=== PATIENT | female | born 1990 | race African-American/Black ===

== ENCOUNTER 2022-11-24 08:41 | Emergency (ER) | payer OTHER, BC, SELFPAY ==
[2022-11-24 08:52] VITALS: BP 120/59; PULSE 67; RESP 16; TEMP 36.4; O2SAT 99
--- NOTE | 2022-11-24 09:48 | ED.GENADULT ---
HPI - General Adult General Time Seen by Provider: 09:48 Date Seen: 11/24/22 Chief complaint: Extremity Pain/Injury, Lower Stated complaint: left leg pain Time Seen by Provider: 11/24/22 09:48 Source: patient and RN notes reviewed Mode of arrival: ambulatory Limitations: no limitations History of Present Illness HPI narrative: Patient is a 32-year-old female coming in with left leg pain. She has pain in the left buttock area and radiates down the leg to about the left ankle. She states the pain travels down. She denies any fevers chills, no trauma, no bowel or bladder changes or incontinence, no history of back problems. She is a nonsmoker. 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 She states she is sleeping okay. Does not believe she is but is not completely sure. As far as underlying health issues, she states she has asthma which is stable at this time. This has been present for about 4 days, she has never had anything like this before. Related Data Home Medications Medication Instructions Recorded Confirmed albuterol 90 mcg/actuation aerosol mcg inhalation PRN 11/24/22 inhaler Previous Rx's Medication Instructions Recorded cyclobenzaprine 10 mg tablet 10 mg PO HS PRN muscle spasm #7 11/24/22 tabs prednisone 20 mg tablet 20 mg PO BID #10 tabs 11/24/22 Allergies Allergy/AdvReac Type Severity Reaction Status Date / Time No Known Drug Allergies Allergy Verified 11/24/22 08:54 Review of Systems Status of ROS: Reports: 6 or more systems reviewed and unremarkable except as noted in History and below [facility] Social History Smoking Status: Never smoker Do you use any of these nicotine containing products: None How often do you have a drink containing alcohol: never How often do you have six or more drinks on one occasion: Never AUDIT-C Alcohol total score: 0 Non-prescribed substance use: denies use service: No Exam Const: Vital Signs, click to edit/add: Vital Signs - 24 hr 11/24/22 08:52 Temperature 97.6 F Pulse Rate [Pulse Oximeter] 67 Respiratory Rate 16 Blood Pressure [Ri ght Upper Arm] 120/59 L Pulse Oximetry 99 Oxygen Delivery Me thod Room Air 32-year-old female is alert interactive no apparent distress. She has no lower extremity edema, normal sensation throughout both lower extremities. No calf tenderness. Negative straight leg raising bilaterally but does have pain in the left sciatic notch on palpation, states that is where it hurts in comes from. Strength is 5/5 and symmetric throughout both lower extremities. Is able to ambulate without difficulty. Documenting provider has reviewed patient's vital signs: yes Course Course Hospital Course: Reviewed with patient that I do think she probably is exhibiting a left sciatica. Will obtain lumbar spine x-rays on her after we confirm negative test. She is in agreement with plan. Reevaluation(s) Time of Reevaluation #1: 10:59 Reevaluation #1: Have reviewed with patient negative lumbar x-rays. We discussed discogenic disease, musculoskeletal issues that can contribute to radiculopathy. Would recommend course of medications with prednisone, p.r.n. Tylenol and ibuprofen, p.r.n. Flexeril. Did discuss restrictions with Flexeril. Will give her 1 week weight restrictions at work, physical therapy referral and recommendations for follow-up. Vital Signs Vital signs: Initial Vital Signs Temperature 97.6 F 11/24/22 08:52 Temperature Source Temporal Artery Scan 11/24/22 08:52 Pulse Rate 67 11/24/22 08:52 Respiratory Rate 16 11/24/22 08:52 Blood Pressure 120/59 L 11/24/22 08:52 Blood Pressure Mean 79 11/24/22 08:52 Blood Pressure Position Sitting 11/24/22 08:52 Pulse Oximetry 99 11/24/22 08:52 Oxygen Delivery Method Room Air 11/24/22 08:52 Vital Signs Temperature 97.6 F 11/24/22 08:52 Pulse Rate 67 11/24/22 08:52 Respiratory Rate 16 11/24/22 08:52 Blood Pressure 120/59 L 11/24/22 08:52 Pulse Oximetry 99 11/24/22 08:52 Oxygen Delivery Method Room Air 11/24/22 08:52 Temperature 97.6 F 11/24/22 08:52 Pulse Rate 67 11/24/22 08:52 Respiratory Rate 16 11/24/22 08:52 Blood Pressure 120/59 L 11/24/22 08:52 Pulse Oximetry 99 07/05/23 08:52 Oxygen Delivery Method Room Air 11/24/22 08:52 Medical Decision Making Lab Data Labs: Lab Results 11/24/22 Range/Units 10:20 Urine HCG, Qual Negative (Negative) Imaging Data XR lumbar spine: Attestation: I have reviewed the pertinent imaging results. Radiologist's impression: Patient: BEATRIZ GALINDO Facility:?[facility] [place] Patient ID:?[id number] Site Patient ID:?[id number]. Site :?[id number] Study:?XRay Spine Lumbar 2 VIEWS-11/24/2022 10:20:01 AM Ordering Physician:?Christal España Final Report: INDICATION: Left radiculopathy TECHNIQUE: Lumbar spine 2 view COMPARISON: None FINDINGS: Bones: Alignment is normal. No fractures or significant bone lesions. Joints: Disc spaces and facets are unremarkable. Soft tissues: Unremarkable. IMPRESSION: Unremarkable lumbar spine. Dictated by Dhruv Herbert MD @ 11/24/2022 10:28:07 AM (Electronic Signature) Critical Care Time Critical Care Time Critical Care Time: No Discharge Plan Discharge Clinical Impression: Acute left lumbar radiculopathy Patient Disposition: Home, Self-Care Condition: Stable Instructions: Lumbar Radiculopathy (ED) Additional Instructions: Try prednisone, take with food. Can use Tylenol and ibuprofen as needed for pain management, follow bottle directions for dosing. Have written for Flexeril to be used at bedtime or as needed for muscle spasm. Flexeril can be sedating and you should not drive, work or operate machinery while under the affects of Flexeril. Need to schedule a clinic followup within the next 7-10 days. I have provided lifting restrictions for work for 1 week, if you need further restrictions, do need to get these from your clinic provider. I have also provided a physical therapy form, call to get scheduled for physical therapy. If your worsening with symptoms as outlined in the handout, please seek re-evaluation. Activity Level: Activity as Tolerated Prescriptions: New prednisone 20 mg tablet 20 mg PO BID Qty: 10 0RF cyclobenzaprine 10 mg tablet 10 mg PO HS PRN (Reason: muscle spasm) Qty: 7 0RF No Action albuterol 90 mcg/actuation aerosol inhalation PRN Stand Alone Forms: Newser Info Instructions
--- NOTE | 2022-11-24 09:57 | CRLHL7_ITS ---
For Patients: As a result of the Century Cures Act, medical imaging exams and procedure reports are released immediately into your electronic medical record. You may view this report before your referring provider. If you have questions, please contact your health care provider. INDICATION: Left radiculopathy TECHNIQUE: Lumbar spine 2 view COMPARISON: None FINDINGS: Bones: Alignment is normal. No fractures or significant bone lesions. Joints: Disc spaces and facets are unremarkable. Soft tissues: Unremarkable. IMPRESSION: Unremarkable lumbar spine. Dictated by Dhruv Herbert MD @ 11/24/2022 10:28:07 AM (Electronically Signed)
[2022-11-24 10:40] LABS: Ur HCG Qualitative* Negative (Negative)
== END 2022-11-24 11:20 | disposition home or self-care (01) ==
PROVIDERS: Emergency Provider Family Medicine
DX: M54.16 Radiculopathy, lumbar region (principal)
CPT/HCPCS: 72100; 81025; 99283